=== PATIENT | female | born 1995 | race Two or more races ===

== ENCOUNTER 2016-06-01 18:02 | Emergency (ER) | payer MEDICAID ==
[~2016-06-01] VITALS: Ht 157.5 cm; Wt 106.1 kg
[2016-06-01 20:08] LABS: Albumin 3.7 g/dL (3.4-5.0); BUN/Creatinine Ratio 14.3; Calcium 8.6 mg/dL (8.5-10.1)
[2016-06-01 20:11] LABS: Bilirubin, Total 0.5 mg/dL (0.2-1.0); Total Protein 8.3 g/dL (6.4-8.2)
[2016-06-01 20:14] LABS: Basophils # (auto) 0 uL; Basophils % (auto) 0.5 % (0.0-2.0); DEFINITIVE VIEW TRANSMISSION; Eosinophils # (auto) 0.2 uL; Eosinophils % (auto) 4.5 % (0.0-7.0); Hematocrit 38.2 % (36.0-46.0); Lymphocytes # (auto) 2.4 uL; Lymphocytes % (auto) 46.2 % (10.0-50.0); Mean Corpuscular Hemoglobin 22.5 pg (28.0-32.0); Mean Corpuscular Hgb Conc. 31.4 g/dL (32.0-36.0); Mean Corpuscular Volume 71.8 fL (80.0-100.0); Mean Platelet Volume 8.9 fL (7.4-10.4); Monocytes # (auto) 0.5 uL; Monocytes % (auto) 9.6 % (0.0-12.0); Neutrophils % (auto) 39.2 % (37.0-80.0); Platelet Count (auto) 437 10^3/uL (140-450); Red Cell Distribution Width 18.5 % (11.6-16.0); White Blood Cell 5.1 10^3/uL (4.4-10.8)
[2016-06-01] MEDS ORDERED: LEVOFLOXACIN 500 MG TAB PO ONE (20:30)
[2016-06-01 21:35] LABS: Hypochromia Slight; Platelet Estimate Adequate
[2016-06-01 21:48] LABS: Urine Bilirubin Negative (Negative); Urine Color PINK (Yellow); Urine Glucose Normal (Normal); Urine Ketone TRACE (Negative); Urine Mucus FEW (None Seen); Urine Nitrite Negative (Negative); Urine RBC 2014 /hpf (0 - 4); Urine Squamous Epithelial Cell MOD /hpf (<5); Urine Urobilinogen Normal (Negative); Urine pH 5.5 (5.0-8.0)
[2016-06-01 21:50] LABS: Urine Blood 3+ /uL (Negative)
[2016-06-01 22:00] VITALS: BP 121/75
== END 2016-06-01 22:04 | disposition home or self-care (01) ==
LOC: ER 18:06
DX: J04.0 Acute laryngitis (principal); N39.0 Urinary tract infection, site not specified
CPT/HCPCS: 36415; 80053; 81001; 81025; 85025

== ENCOUNTER 2017-03-05 18:11 | Emergency (ER) | payer MEDICAID ==
[~2017-03-05] VITALS: Ht 160 cm; Wt 104.3 kg
[2017-03-05 18:41] LABS: Basophils # (auto) 0.1 uL; Basophils % (auto) 0.9 % (0.0-2.0); Mean Platelet Volume 8.1 fL (6.9-10.8); Monocytes # (auto) 0.8 uL; Neutrophils # (auto) 6.9 uL; Nucleated Red Blood Cells % 0.1 %
[2017-03-05 18:43] LABS: Eosinophils # (auto) 0.1 uL; Eosinophils % (auto) 1.1 % (0.0-7.0); Hematocrit 41.8 % (36.0-46.0); Hemoglobin 13.5 g/dL (12.2-16.2); Lymphocytes # (auto) 4.4 uL; Lymphocytes % (auto) 35.5 % (10.0-50.0); Mean Corpuscular Hemoglobin 25.8 pg (28.0-32.0); Mean Corpuscular Hgb Conc. 32.3 g/dL (32.0-36.0); Mean Corpuscular Volume 79.8 fL (80.0-100.0); Monocytes % (auto) 6.3 % (0.0-12.0); Neutrophils % (auto) 56.2 % (37.0-80.0); Platelet Count (auto) 415 10^3/uL (140-450); Red Cell Distribution Width 15.6 % (11.8-14.3); White Blood Cell 12.3 10^3/uL (4.4-10.8)
[2017-03-05 18:57] LABS: Albumin 4.1 g/dL (3.4-5.0); BUN/Creatinine Ratio 12.8; Bilirubin, Total 0.7 mg/dL (0.2-1.0); Calcium 9.1 mg/dL (8.5-10.1); Potassium 4.2 mmol/L (3.5-5.1); Total Protein 9.2 g/dL (6.4-8.2)
[2017-03-05 19:09] LABS: Urine Bilirubin Negative (Negative); Urine Blood Negative /uL (Negative); Urine Color Yellow (Yellow); Urine Glucose Normal (Normal); Urine Ketone Negative (Negative); Urine Mucus FEW (None Seen); Urine Nitrite Negative (Negative); Urine RBC 3 /hpf (0 - 4); Urine Squamous Epithelial Cell MANY /hpf (<5); Urine pH 8.5 (5.0-8.0)
[2017-03-05] MEDS ORDERED: SODIUM CHLORIDE 0.9% 1,000 ML IV ONE (19:45)
[2017-03-05] MEDS ORDERED: ONDANSETRON HCL 4 MG/2 ML VIAL IV ONE (19:45)
[2017-03-05] MEDS ORDERED: HYDROmorphone HCL 2 MG/ML VL IV ONE (19:45)
[2017-03-05 22:45] VITALS: BP 121/70
== END 2017-03-05 23:48 | disposition home or self-care (01) ==
LOC: ER 18:17
DX: K80.20 Calculus of gallbladder without cholecystitis without obstruction (principal); N39.0 Urinary tract infection, site not specified
CPT/HCPCS: 36415; 74176; 80053; 81001; 81025; 83690; 84702; 85025; 96361; 96374; 96375; 99285; J1170; J2405

== ENCOUNTER 2017-05-10 15:48 | Emergency (ER) | payer MEDICAID ==
[~2017-05-10] VITALS: Ht 157.5 cm; Wt 92.1 kg
[2017-05-10 16:20] LABS: Basophils # (auto) 0 uL; Eosinophils # (auto) 0.1 uL; Hematocrit 41.2 % (36.0-46.0); Hemoglobin 13.4 g/dL (12.2-16.2); Mean Corpuscular Hgb Conc. 32.6 g/dL (32.0-36.0); Monocytes # (auto) 0.6 uL; Monocytes % (auto) 7.2 % (0.0-12.0); Nucleated Red Blood Cells % 0.1 %
[2017-05-10 16:22] LABS: Basophils % (auto) 0.4 % (0.0-2.0); Lymphocytes % (auto) 34.2 % (10.0-50.0); Mean Corpuscular Hemoglobin 26.1 pg (28.0-32.0); Neutrophils % (auto) 57.2 % (37.0-80.0); Platelet Count (auto) 384 10^3/uL (140-450); Red Blood Cells 5.14 10^6/uL (4.0-5.20); Red Cell Distribution Width 15.7 % (11.8-14.3); White Blood Cell 8.7 10^3/uL (4.4-10.8)
[2017-05-10 16:35] LABS: Albumin 3.9 g/dL (3.4-5.0); BUN/Creatinine Ratio 15.9; Calcium 9.3 mg/dL (8.5-10.1); Potassium 3.9 mmol/L (3.5-5.1)
[2017-05-10 16:37] LABS: Bilirubin, Total 0.5 mg/dL (0.2-1.0); Total Protein 8.8 g/dL (6.4-8.2)
[2017-05-10] MEDS ORDERED: MECLIZINE HCL 25 MG TAB PO ONE (17:15)
[2017-05-10 18:47] LABS: Urine Bacteria FEW /hpf (None Seen); Urine Blood Negative /uL (Negative); Urine Specific Gravity 1.019 (1.001-1.035); Urine WBC 3 /hpf (0 - 5)
[2017-05-10 19:33] VITALS: BP 125/81
== END 2017-05-10 19:44 | disposition home or self-care (01) ==
LOC: ER 15:59
DX: N39.0 Urinary tract infection, site not specified (principal); J04.0 Acute laryngitis; R42 Dizziness and giddiness
CPT/HCPCS: 36415; 70450; 80053; 81001; 84702; 85025; 99285; J8597

== ENCOUNTER 2017-12-31 01:27 | Emergency (ER) | payer MEDICAID ==
[~2017-12-31] VITALS: Ht 157.5 cm; Wt 102.1 kg
[2017-12-31 02:17] VITALS: BP 137/85
[2017-12-31 03:20] LABS: Calcium 9.1 mg/dL (8.5-10.1); Magnesium 2.4 mg/dL (1.6-2.6); Potassium 4.1 mmol/L (3.5-5.1)
[2017-12-31 03:22] LABS: Basophils # (auto) 0 uL; Basophils % (auto) 0.3 % (0.0-2.0); Bilirubin, Total 0.9 mg/dL (0.2-1.0); Eosinophils # (auto) 0.1 uL; Mean Corpuscular Hgb Conc. 32.5 g/dL (32.0-36.0); Neutrophils % (auto) 61.8 % (37.0-80.0); Nucleated Red Blood Cells % 0.1 %; Total Protein 8.5 g/dL (6.4-8.2); White Blood Cell 10.6 10^3/uL (4.4-10.8)
[2017-12-31 03:24] LABS: Eosinophils % (auto) 1.3 % (0.0-7.0); Hematocrit 42.3 % (36.0-46.0); Hemoglobin 13.8 g/dL (12.2-16.2); Lymphocytes # (auto) 3.3 uL; Lymphocytes % (auto) 31.3 % (10.0-50.0); Mean Corpuscular Hemoglobin 26.9 pg (28.0-32.0); Mean Corpuscular Volume 82.7 fL (80.0-100.0); Monocytes # (auto) 0.6 uL; Monocytes % (auto) 5.3 % (0.0-12.0); Neutrophils # (auto) 6.6 uL; Platelet Count (auto) 324 10^3/uL (140-450); Red Blood Cells 5.11 10^6/uL (4.0-5.20); Red Cell Distribution Width 16.1 % (11.8-14.3)
[2017-12-31 05:07] LABS: Urine Bacteria MOD /hpf (None Seen); Urine Blood Negative /uL (Negative); Urine Mucus FEW (None Seen); Urine Specific Gravity 1.026 (1.001-1.035); Urine WBC 2 /hpf (0 - 5)
== END 2017-12-31 05:35 | disposition left against medical advice (07) ==
LOC: ER 01:28
DX: R10.9 Unspecified abdominal pain (principal); R11.2 Nausea with vomiting, unspecified; Z53.21 Procedure and treatment not carried out due to patient leaving prior to being seen by health care provider
CPT/HCPCS: 36415; 80053; 81001; 81025; 82150; 83690; 83735; 85025

== ENCOUNTER 2017-12-31 17:31 | Emergency (ER) | payer MEDICAID ==
[~2017-12-31] VITALS: Ht 157.5 cm; Wt 102.1 kg
[2017-12-31 17:48] VITALS: BP 128/73
== END 2017-12-31 20:04 | disposition home or self-care (01) ==
LOC: ER 17:31
DX: N39.0 Urinary tract infection, site not specified (principal); K59.00 Constipation, unspecified; Z90.49 Acquired absence of other specified parts of digestive tract

== ENCOUNTER 2018-11-11 18:05 | Emergency (ER) | payer MEDICAID ==
[~2018-11-11] VITALS: Ht 157.5 cm; Wt 104.3 kg
[2018-11-11 18:51] LABS: Basophils # (auto) 0.1 uL; Basophils % (auto) 0.9 % (0.0-2.0); Eosinophils # (auto) 0.1 uL; Eosinophils % (auto) 0.9 % (0.0-7.0); Hematocrit 39.6 % (36.0-46.0); Hemoglobin 13.4 g/dL (12.2-16.2); Lymphocytes # (auto) 2.7 uL; Lymphocytes % (auto) 30.6 % (10.0-50.0); Mean Corpuscular Hemoglobin 28.4 pg (28.0-32.0); Mean Corpuscular Hgb Conc. 33.8 g/dL (32.0-36.0); Monocytes # (auto) 0.5 uL; Monocytes % (auto) 5.5 % (0.0-12.0); Neutrophils # (auto) 5.5 uL; Neutrophils % (auto) 62.1 % (37.0-80.0); Nucleated Red Blood Cells % 0.1 %; Platelet Count (auto) 309 10^3/uL (140-450); Red Blood Cells 4.71 10^6/uL (4.0-5.20); Red Cell Distribution Width 15.6 % (11.8-14.3); White Blood Cell 8.9 10^3/uL (4.4-10.8)
[2018-11-11 19:13] LABS: Alanine Aminotransferase 14 U/L (13-56); Albumin 3.3 g/dL (3.4-5.0); Anion Gap 11 (5-15); Aspartate Aminotransferase 9 U/L (15-37); BUN/Creatinine Ratio 9.2; Blood Urea Nitrogen 6 mg/dL (7-18); Calcium 8.5 mg/dL (8.5-10.1); Carbon Dioxide 22 mmol/L (21-32); Chloride 108 mmol/L (98-107); GFR African American 144 mL/min; GFR Non-African American 119 mL/min; Glucose 110 mg/dL (74-106); Potassium 3.7 mmol/L (3.5-5.1); Sodium 141 mmol/L (136-145)
[2018-11-11 19:16] LABS: Alkaline Phosphatase 77 U/L (45-117); Bilirubin, Total 0.3 mg/dL (0.2-1.0); Total Protein 7.6 g/dL (6.4-8.2)
[2018-11-11 20:23] LABS: Urine Bacteria FEW /hpf (None Seen); Urine Blood Negative /uL (Negative); Urine Mucus FEW (None Seen); Urine Specific Gravity 1.027 (1.001-1.035); Urine WBC 17 /hpf (0 - 5)
[2018-11-11 22:04] VITALS: BP 119/73
== END 2018-11-11 22:16 | disposition home or self-care (01) ==
LOC: ER 18:08
DX: O23.41 Unspecified infection of urinary tract in pregnancy, first trimester (principal); Z3A.08 8 weeks gestation of pregnancy
CPT/HCPCS: 36415; 76801; 80053; 81001; 84702; 85025